=== PATIENT | male | born 2000 | race Caucasian/White ===

== ENCOUNTER 2020-12-14 13:37 | Emergency (ER) | payer SELFPAY ==
[~2020-12-14] VITALS: Ht 172.7 cm; Wt 57.7 kg
[2020-12-14 13:44] VITALS: BP 113/74
--- NOTE | 2020-12-14 15:06 | NUR ---
PT NOT FOUND IN LOBBY, NA X3
== END 2020-12-14 15:22 | disposition left against medical advice (07) ==
LOC: ED 15:11
DX: R56.9 Unspecified convulsions (principal); Z53.21 Procedure and treatment not carried out due to patient leaving prior to being seen by health care provider
CPT/HCPCS: 94640; 99283